=== PATIENT | female | born 1940 | race Hispanic/Latino ===

== ENCOUNTER → 2018-08-14 | Day surgery (SDC) | payer MEDICARE ==
[2018-08-13 12:47] LABS: BASOPHILS % 0.5 % (0.0-1.0); EOSINOPHILS # (AUTO) 0.3 (0.0-0.4); EOSINOPHILS % 3.3 % (0.0-6.0); HEMATOCRIT 38.9 % (34.2-44.1); HEMOGLOBIN 12.4 g/dL (12.0-16.0); LYMPHOCYTES # (AUTO) 1.8 (1.0-3.2); LYMPHOCYTES % 20.8 % (18.0-39.1); MEAN CORPUSCULAR HGB CONC 31.9 g/dL (31-35); MONOCYTES # (AUTO) 0.6 (0.2-0.8); MONOCYTES % 7.5 % (4.4-11.3); NEUTROPHILS # (AUTO) 5.7 (2.1-6.9); NEUTROPHILS % 67.5 % (38.7-80.0); PLATELET COUNT 186 x10e3/uL (140-360); RED BLOOD COUNT 4.14 x10e6/uL (3.6-5.1); RED CELL DISTRIBUTION WIDTH 13.1 % (11.7-14.4)
[~2018-08-14] MED LIST: ALLOPURINOL100 MG PO; ARTHRITIS PAIN650 M3 PO; BENICAR20 MG PO; BUPIVACAINE 0.25% 30ML SDV INJ ONE; CRESTOR20 MG PO; ETODOLAC400 MG PO; FENTANYL CITRATE/PF 100MCG/2 ML INJ ONE; IOPAMIDOL 200 MG/ML 20 ML VIAL IT ONE; LIDOCAINE HCL 1% 30ML-PF VIAL ONE; MIDAZOLAM HCL 2 MG/2 ML VIAL ONE; ONDANSETRON HCL INJ 2 MG/ML VIAL ONE; PROPOFOL IV EMULSION 10 MG/ML 20 ML VIAL ONE; TRIAMCINOLONE ACET 40 MG/ML VIAL ONE; VITAMIN D400 UNIT PO
--- OUTSIDE RECORDS SUMMARY | 2018-08-14 06:48 | XMS REPORT | Clinical Summary ---
Author Author [facility] Address Unknown Phone Unavailable Care Team Providers Care Plastic Process Technician Name Role Phone Wesley Fink MD PCP Allergies Comments Active Allergy Reactions Severity Noted Date Aspirin 07/23/2018 Levofloxacin 07/23/2018 Medications End Date Status Medication Sig Dispensed Refills Start Date Active olmesartan (BENICAR) 20 Take 20 mg by 0 MG tablet mouth daily. Active allopurinol (ZYLOPRIM) Take 100 mg 0 100 MG tablet by mouth daily. Active rosuvastatin (CRESTOR) 20 Take 20 mg by 0 MG tablet mouth daily. Active acetaminophen (TYLENOL) Insert 650 mg 0 650 MG suppository into the rectum every 4 (four) hours as needed for mild pain. Active Problems No known active problems Encounters Care Team Description Date Type Specialty Deric Walker MD Arthritis of left knee (Primary Dx) 08/13/2018 Office Visit Orthopedic Surgery Leda Abraham MA Pre-op evaluation (Primary Dx) 08/12/2018 Orders Only Orthopedic Surgery Deric Walker MD Primary osteoarthritis of left knee (Primary Dx) 08/07/2018 Office Visit Orthopedic Surgery Deric Walker MD Arthritis of right knee 07/23/2018 Hospital Radiology Encounter Deric Walker MD Arthritis of right knee (Primary Dx); Right knee pain, unspecified chronicity 07/23/2018 Office Visit Orthopedic Surgery after 08/13/2017 Social History Date Tobacco Use Types Packs/Day Years Used Never Smoker Smokeless Tobacco: Never Used Sex Assigned at Date Recorded Not on file Industry Job Start Date Occupation Not on file Not on file Not on file Travel End Travel History Travel Start No recent travel history available. Last Filed Vital Signs Time Taken Vital Sign Reading - Blood Pressure - - Pulse - - Temperature - - Respiratory Rate - - Oxygen Saturation - - Inhaled Oxygen - Concentration 07/23/2018 9:04 AM 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 Weight 68 kg (150 lb) 07/23/2018 9:04 AM 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 Height 149.9 cm (4' 11") 07/23/2018 9:04 AM 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 Body Mass Index 30.3 Plan of Treatment Care Team Description Date Type Specialty Deric Walker MD [address] [id number] 08/21/2018 Office Visit Orthopedic Surgery Health Maintenance Due Date Last Done Comments SHINGLES VACCINES (1 of 1989 2) PNEUMOCOCCAL 2004 POLYSACCHARIDE VACCINE AGE 65 AND OVER PNEUMOCOCCAL-13 2004 INFLUENZA VACCINE 03/26/2018 Procedures Comments Procedure Name Priority Date/Time Associated Diagnosis CT ARTHROCENTESIS Routine 08/13/2018 Arthritis of left knee ASPIR&/INJ MAJOR JT/BURSA 2:15 PM 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 W/O US CT ARTHROCENTESIS Routine 08/07/2018 Primary osteoarthritis of ASPIR&/INJ MAJOR JT/BURSA 9:45 AM 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 left knee W/O US CT LOWER EXTREMITY WO Routine 07/23/2018 Arthritis of right knee CONTRAST RIGHT 1:55 PM 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 XR KNEE 4+ VW BILATERAL Routine 07/23/2018 Right knee pain, 9:12 AM 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 unspecified chronicity XR LEG LENGTH EVALUATION Routine 07/23/2018 Right knee pain, 9:10 AM 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 unspecified chronicity after 08/13/2017 Results * Large Joint Arthrocentesis: knee, L knee (08/13/2018 2:15 PM 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) Narrative Performed At Deric Walker MD 08/13/20183:55 PM Large Joint Arthrocentesis: knee, L knee Consent given by: patient Site marked: site marked Timeout: Immediately prior to procedure a time out was called to verify the correct patient, procedure, equipment, application support consultant and site/side marked as required Supporting Documentation Indications: pain Procedure Details Preparation: Patient was prepped and draped in the usual sterile fashion Ultrasound guided: no Platelet Rich Plasma Used: no PRP Used Location: knee - L knee Left side: Needle size: 22 G Approach: anterolateral Left knee medications administered: 20 mg sodium hyaluronate (viscosup) 10 mg/mL * Large Joint Arthrocentesis: knee, L knee (08/07/2018 9:45 AM 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[employer]) Narrative Performed At Deric Walker MD 08/11/20189:47 AM Large Joint Arthrocentesis: knee, L knee Consent given by: patient Timeout: Immediately prior to procedure a time out was called to verify the correct patient, procedure, equipment, application support consultant and site/side marked as required Supporting Documentation Indications: pain Procedure Details Preparation: Patient was prepped and draped in the usual sterile fashion Ultrasound guided: no Location: knee - L knee Left side: Needle size: 22 G Approach: anterolateral Left knee medications administered: 2 mL sodium hyaluronate (viscosup) 30 mg/2 mL Patient tolerance: patient tolerated the procedure well with no immediate complications * CT Lower Extremity Wo Contrast Right (07/23/2018 1:55 PM 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 Multiple thin section axial scans were obtained, with multiplanar reformation. Specialized protocol for custom prosthesis modeling and presurgical planning was utilized. Radiation dose reduction technique was utilized. COMPARISON:None. IMPRESSION: 1.There are advanced degenerative osteoarthritic changes of the knee joint. 2.Limited images of the right hip and ankle do not demonstrate any significant abnormality. [id number] Procedure Note Interface, Radiology Results [facility] - 07/23/2018 2:47 PM 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ATOR [employer]ODUCTION EXAMINATION: CT LOWER EXTREMITY WO CONTRAST RIGHT CLINICAL HISTORY: M17.11 Unilateral primary osteoarthritis right knee, CONFORMIS PRotocol TECHNIQUE: CT examination of the right was performed without contrast. Multiple thin section axial scans were obtained, with multiplanar reformation. Specialized protocol for custom prosthesis modeling and presurgical planning was utilized. Radiation dose reduction technique was utilized. COMPARISON: None. IMPRESSION: 1. There are advanced degenerative osteoarthritic changes of the knee joint. 2. Limited images of the right hip and ankle do not demonstrate any significant abnormality. 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 Performing Organization Address [facility] Phone Number [facility] [phone] [place] [address] after 08/13/2017 Insurance Payer Benefit Subscriber ID Type Phone Address Plan / Group HU[employer] MEDICARE HUMANA xxxxxxxxx PPO MEDICARE PPO/PFFS/E [facility] Advance Directives Patient has advance care planning documents on file. For more information, juana zhong contact: Clark Sampson [address] [place] [address]
[2018-08-14 09:15] VITALS: BP 147/80
--- NOTE | 2018-08-14 09:44 | Diagnostic Imaging Report ---
Exam: Left hip 2 views History: Concern for fracture Comparison: None. Findings: No acute, displaced fracture or dislocation. Femoral head projects appropriately adjacent to the glenoid. Mild joint space narrowing and acetabular marginal osteophytosis. Small amount of heterotopic ossification adjacent to the greater femoral trochanter. Soft tissues are otherwise unremarkable. Impression: No acute displaced hip fracture. Signed by: Dr. Herb Moncada M.D. on 08/14/2018 9:41 AM
== END | disposition home or self-care (01) ==
LOC: OR 06:46
PROVIDERS: ATTEND Physical Medicine & Rehabilitation Pain Medicine
DX: M70.61 Trochanteric bursitis, right hip (principal); M70.62 Trochanteric bursitis, left hip; M54.16 Radiculopathy, lumbar region; M25.561 Pain in right knee; I10 Essential (primary) hypertension; E78.5 Hyperlipidemia, unspecified; Z88.6 Allergy status to analgesic agent; Z88.1 Allergy status to other antibiotic agents; Z88.8 Allergy status to other drugs, medicaments and biological substances; Z91.013 Allergy to seafood; Z01.810 Encounter for preprocedural cardiovascular examination; Z01.812 Encounter for preprocedural laboratory examination
CPT/HCPCS: 20610; 36415; 73502; 85025; 93005; J2001; J2250; J2405; J2704; J3301; Q9967